=== PATIENT | male | born 1995 | race Asian ===

== ENCOUNTER 2020-08-08 18:18 | Emergency (ER) | payer OTHER, SELFPAY ==
--- NOTE | ~2020-08-08 | XR_ITS ---
EXAMINATION: XR FOOT, RIGHT CLINICAL INFORMATION: Puncture wound COMPARISON: None TECHNIQUE: AP, lateral, and oblique views of the right foot. FINDINGS: Bone alignment is normal. No fracture or dislocation is seen. Joint spaces are normal. There is soft tissue swelling over the plantar foot adjacent to the metatarsal head region. No soft tissue foreign body is seen. XR/XR foot RT 2V IMPRESSION: No fracture or soft tissue foreign body seen.
--- NOTE | 2020-08-08 19:34 | ED.WOUNDLAC ---
HPI - Wound/Laceration General Chief Complaint: Wound/Laceration Stated Complaint: stepped on a nail Time Seen by Provider: 08/08/20 19:49 Source: patient Mode of arrival: ambulatory Limitations: no limitations History of Present Illness HPI narrative: 25-year-old male with no significant past medical history presents with puncture wound from a nail to the right lateral plantar aspect of the foot. Unknown when his last Tdap vaccine was given. Patient does not report any other symptoms. Onset (ago): day(s) (One) Extremity Location: right: foot Place: home Patient tetanus UTD: No Context: accidental Associated symptoms: suspect foreign body present Related Data Previous Rx's Medication Instructions Recorded cephalexin 500 mg PO Q8H 5 Days #15 cap 08/08/20 levofloxacin 750 mg PO Q24H 2 Days #2 tab 08/08/20 Allergies Allergy/AdvReac Type Severity Reaction Status Date / Time No Known Allergies Allergy Verified 08/08/20 19:39 Review of Systems Review of Systems: Constitutional: No Fever, No Chills ENT/Mouth: No Ear Pain, No Hoarseness, No sore throat Eyes: No Eye Pain, No Swelling, No Redness, No Foreign Body Cardiovascular: No Chest Pain, No SOB Respiratory: No Cough, No Dyspnea Gastrointestinal: No Nausea, No Vomiting, No Diarrhea, No abdominal Pain Genitourinary: No Dysuria, No Hematuria Musculoskeletal: positive right foot pain pain, No Myalgias, No Joint Swelling Skin: No Skin lacerations, No rash Neuro: No Weakness, No Numbness, No Paresthesias, No Loss of Consciousness, No Dizziness, No Headache Psych: No Anxiety/Panic, No Depression Heme/Lymph: no easy bruising, no Lymphadenopathy Endocrine: No Polyuria, No Polydipsia Yes all other systems are reviewed and are negative [facility] Past Medical History Attestation statement: The following information was validated with the patient. Source: old records reviewed Social History Social History Advance Directives: No Advance Directives Information Provided: Yes Physical Exam Vital Signs: Vital Signs: Last Vital Signs Temp 98.6 F 08/08/20 19:55 Pulse 79 08/08/20 19:55 Resp 16 08/08/20 19:55 BP 132/81 08/08/20 19:55 Pulse Ox 100 08/08/20 19:55 Body Mass Index 32.3 Appearance: Alert. Oriented X3. No acute distress. Eyes: Pupils equal, round and reactive to light. ENT: Pharynx normal. Neck: Normal inspection. Neck supple. CVS: Normal heart rate and rhythm. Pulses normal. Respiratory: No respiratory distress. Breath sounds normal. Abdomen: Soft and nontender. Skin: Skin warm and dry. Normal skin color. Normal skin turgor. Extremities: Full flexion extension internal and external rotation to the right foot. Able to ambulate and bear weight without difficulty, no indication of tendon injury. Puncture wound noted to the mid lateral plantar surface of the foot. No swelling, bruising, or visible deformity noted. Neuro: No motor deficit. No sensory deficit. Course Course Course Narrative: 25-year-old presents with a puncture wound to right foot. Plan of care is for x-rays. Will give Levaquin and Keflex, per up-to-date for Pseudomonas and Staph aureus coverage. Will update Tdap vaccine at this time. X-rays negative for acute findings or foreign body. Area irrigated with copious amounts saline. Patient verbalized understanding of and agrees to plan of care discharge home. MDM - Wound/Laceration MDM Narrative Medical decision making narrative: Plantar puncture wound Imaging Data Right foot x-ray: Attestation: I personally reviewed and interpreted this imaging study as follows: Radiologist's impression: EXAMINATION: XR FOOT, RIGHT CLINICAL INFORMATION: Puncture wound COMPARISON: None TECHNIQUE: AP, lateral, and oblique views of the right foot. FINDINGS: Bone alignment is normal. No fracture or dislocation is seen. Joint spaces are normal. There is soft tissue swelling over the plantar foot adjacent to the metatarsal head region. No soft tissue foreign body is seen. XR/XR foot RT 2V IMPRESSION: No fracture or soft tissue foreign body seen. Discharge Plan Discharge Clinical Impression: Puncture wound of plantar aspect of foot Qualifiers: Encounter type: initial encounter Laterality: right Qualified Code(s): S91.331A - Puncture wound without foreign body, right foot, initial encounter Patient Disposition: Home, Self-Care Instructions: Puncture Wound in the Foot (ED) Additional Instructions: You were evaluated for puncture wound to the foot. Please take Levaquin for the next 2 days. Please take Keflex 3 times a day for the next 5 days. Please take these medications to prevent an infection in the foot. Foot puncture wounds have high risk for infections. We updated your Tdap vaccine today. Thank you for choosing this emergency department for evaluation. Please follow-up with primary care physician as needed. Return to the emergency department for any new, concerning, or worsening symptoms. Prescriptions: New levofloxacin 750 mg tablet 750 mg PO Q24H 2 Days Qty: 2 RF: 0 cephalexin 500 mg capsule 500 mg PO Q8H 5 Days Qty: 15 RF: 0 Interventions: ED Discharge Assessment Last Done: 08/08/20 21:26 Discharge Date/Time: 08/08/20 20:52
[2020-08-08 19:55] VITALS: BP 132/81; PULSE 79; RESP 16; TEMP 37; O2SAT 100; BMI 32.3
[2020-08-08] MEDS: cephALEXin 500 MG CAPSULE PO (20:18)
[2020-08-08] MEDS: levoFLOXacin 750 MG TABLET PO (20:18)
[2020-08-08] MEDS: Diphth,Pertus(ACell),Tet Adult 0.5 ML SYRINGE IM (20:18)
== END 2020-08-08 20:52 | disposition home or self-care (01) ==
PROVIDERS: Emergency Provider Emergency Medicine
DX: S91.331A Puncture wound without foreign body, right foot, initial encounter (principal); M79.671 Pain in right foot; Y28.9XXA Contact with unspecified sharp object, undetermined intent, initial encounter; Y93.01 Activity, walking, marching and hiking; Y92.9 Unspecified place or not applicable; Y99.9 Unspecified external cause status; Z79.899 Other long term (current) drug therapy
CPT/HCPCS: 73620; 90471; 90715; 99284

== ENCOUNTER → 2024-07-11 14:01 | Outpatient (BNVA) | payer SELFPAY | PROVIDERS: Visit Provider Surgery ==